=== PATIENT | female | born 1995 | race Caucasian/White ===

== ENCOUNTER → 2019-04-25 | Outpatient (CLI) | payer OTHER ==
[~2019-04-25] VITALS: Ht 157.5 cm; Wt 124.7 kg
[~2019-04-25] MED LIST: NO HOME MEDICATIONS; PROVENTIL0.09 MG/A1 IH
[2019-04-25 08:35] VITALS: BP 120/84; PULSE 76
== END ==
LOC: LIGHT 08:01
DX: Z76.89 Persons encountering health services in other specified circumstances (principal); E66.01 Morbid (severe) obesity due to excess calories; Z71.3 Dietary counseling and surveillance
CPT/HCPCS: G0463

== ENCOUNTER → 2019-04-30 | Outpatient (CLI) | payer OTHER | LOC: LIGHT 15:36 | DX: G47.00 Insomnia, unspecified (principal); M54.5 Low back pain; Z98.84 Bariatric surgery status; E66.01 Morbid (severe) obesity due to excess calories; Z68.43 Body mass index [BMI] 50.0-59.9, adult; Z71.3 Dietary counseling and surveillance ==

== ENCOUNTER → 2019-05-04 | Outpatient (CLI) | payer OTHER | LOC: LIGHT 08:49 | DX: G47.00 Insomnia, unspecified (principal); M54.5 Low back pain; Z98.84 Bariatric surgery status; E66.01 Morbid (severe) obesity due to excess calories; Z68.43 Body mass index [BMI] 50.0-59.9, adult; Z71.3 Dietary counseling and surveillance ==

== ENCOUNTER → 2019-07-26 | Outpatient (CLI) | payer OTHER ==
[~2019-07-26] VITALS: Ht 157.5 cm; Wt 127.5 kg
[~2019-07-26] MED LIST changes: +FASTIN30 MG PO
[2019-07-26 16:30] VITALS: BP 126/60; PULSE 120
== END ==
LOC: LIGHT 05-24 10:59
DX: G47.00 Insomnia, unspecified (principal); M47.817 Spondylosis without myelopathy or radiculopathy, lumbosacral region; E66.01 Morbid (severe) obesity due to excess calories; Z68.43 Body mass index [BMI] 50.0-59.9, adult; Z71.3 Dietary counseling and surveillance

== ENCOUNTER → 2019-11-01 | Outpatient (CLI) | payer OTHER | LOC: COL.RAD 09:06 | DX: M79.644 Pain in right finger(s) (principal) ==